=== PATIENT | female | born 1990 | race Caucasian/White ===

== ENCOUNTER 2018-08-24 14:16 | Emergency (ER) | payer OTHER ==
--- NOTE | 2018-08-24 15:03 | ED Physician Chart ---
ED Chief Complaint/HPI - Patient Information Date Seen:: 08/24/18 Time Seen:: 14:50 Chief Complaint:: back pain, chills and bloating History of Present Illness:: Patient had bacterial vaginosis diagnosed 3 days ago at [place]. She was prescribed Flagyl 500 mg of which she has taken four and Diflucan 150 mg and has taken 1. Patient had tongue tingling and lip swelling yesterday. Today she has back pain, chills and bloating. No throat swelling or difficulty breathing. 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 Musculoskeletal: Back pain Endocrine: No polyuria Psychiatric: No prior psych history Hematopoietic: No bruising Allergic/Immuno: No urticaria Neurological: No syncope, No focal symptoms ED Past Medical History - Past Medical History Past Medical History: No significant medical hx Family History: Diabetes Melitus, HTN Social History: Non Smoker, Alcohol, Other (usual alcohol consumption) Surgical History: Appendectomy Psychiatricy History: None Medication: Reviewed Family Medical History - Family Member Father Ethnicity: Living Status: Still Living Hx Family Hypertension: Yes ED Physical Exam - Physical Examination General/Constitutional: Awake, Well-developed, well-nourished, Alert, No distress, GCS 15, Non-toxic appearing, Ambulatory Head: Atraumatic Eyes: Lids, conjuctiva normal, PERRL, EOMI Skin: Nl inspection, No rash, No skin lesions, No ecchymosis, Well hydrated, No lymphadenopathy ENMT: External ears, nose nl, Nasal exam nl, Lips, teeth, gums nl Neck: Nontender, Full ROM w/o pain, No JVD, No nuchal rigidity, No bruit, No mass, No stridor Respiratory: Nl effort/Exclusion, Clear to Auscultation, No Wheeze/Rhonchi/Rales Cardio Vascular: RRR, No murmur, gallop, rubs, NL S1 S2 GI: No tenderness/rebounding/guarding, No organomegaly, No hernia, Normal BS's, Nondistended, No mass/bruits, No McBurney tenderness : No CVA tenderness Extremities: No tenderness or effusion, Full ROM, normal strength in all extremities, No edema, Normal digits & nails Neuro/Psych: Alert/oriented, DTR's symmetric, Normal sensory exam, Normal motor strength, Judgement/insight normal, Mood normal, Normal gait, No focal deficits Misc: Normal back, No paraspinal tenderness ED Labs/Radiology/EKG Results - Lab Results Results: Laboratory Results Urine Source [place] 08/24/18 14:45 Urine Color YELLOW 08/24/18 14:45 Urine Clarity HAZY (CLEAR) 08/24/18 14:45 Urine pH 6.0 (4.6 - 8.0) 08/24/18 14:45 Ur Specific [place] 1.025 (1.005-1.030) 08/24/18 14:45 Urine Protein NEGATIVE mg/dL (NEGATIVE) 08/24/18 14:45 Urine Glucose (UA) NEGATIVE mg/dL (NEGATIVE) 08/24/18 14:45 Urine Ketones NEGATIVE mg/dL (NEGATIVE) 08/24/18 14:45 Urine Blood NEGATIVE (NEGATIVE) 08/24/18 14:45 Urine Nitrate NEGATIVE (NEGATIVE) 08/24/18 14:45 Urine Bilirubin NEGATIVE (NEGATIVE) 08/24/18 14:45 Urine Urobilinogen 0.2 E.U./dL (0.2 - 1.0) 08/24/18 14:45 Ur Leukocyte Esterase NEGATIVE (NEGATIVE) 08/24/18 14:45 Urine RBC NONE SEEN /hpf (0-5) 08/24/18 14:45 Urine WBC 2-5 /hpf (0-5) 08/24/18 14:45 Ur Epithelial Cells FEW /lpf (FEW) 08/24/18 14:45 Urine Bacteria MODERATE /hpf (NONE SEEN) H 08/24/18 14:45 Urine Test NEGATIVE 08/24/18 14:45 ED Assessment - Assessment General Assessment: Suggested to patient stopping the Flagyl and following up with [place]. There are no signs of urinary tract infection ED Septic Shock - . Is Septic Shock (SBP<90, OR Lactate>4 mmol\L) present?: No - <6hrs of presentation: Vital Signs: Vital Signs - 8 hr 08/24/18 14:37 HR 107 RR 18 BP 122/72 O2 Sat % 99 ED Reassessment (Disposition) - Reassessment Reassessment Condition:: Unchanged - Diagnosis Diagnosis:: Medication side effect - Aftercare/Follow up Instructions Aftercare/Follow-Up Instructions:: Refer to Discharge Instructions - Patient Disposition Discharge/Transfer:: Home Condition at Disposition:: Stable, Unchanged
[2018-08-24 15:11] LABS: URINE SOURCE MIDSTREAM
[2018-08-24 15:12] LABS: URINE BILIRUBIN NEGATIVE (NEGATIVE); URINE BLOOD NEGATIVE (NEGATIVE); URINE GLUCOSE (UA) NEGATIVE (NEGATIVE); URINE KETONE NEGATIVE (NEGATIVE); URINE LEUKOCYTE ESTERASE NEGATIVE (NEGATIVE); URINE NITRATE NEGATIVE (NEGATIVE); URINE PROTEIN NEGATIVE (NEGATIVE); URINE UROBILINOGEN 0.2 E.U./dL (0.2 - 1.0)
[2018-08-24 15:21] LABS: URINE CLARITY HAZY (CLEAR); URINE COLOR YELLOW; URINE MICROSCOPIC INDICATED? YES
[2018-08-24 15:22] LABS: URINE BACTERIA MODERATE /hpf (NONE SEEN); URINE EPITHELIAL CELLS FEW /lpf (FEW); URINE RBC NONE SEEN /hpf (0-5)
== END 2018-08-24 16:00 | disposition home or self-care (01) ==
LOC: ER 14:16
DX: R20.2 Paresthesia of skin (principal); R68.83 Chills (without fever); T37.3X5A Adverse effect of other antiprotozoal drugs, initial encounter; T37.8X5A Adverse effect of other specified systemic anti-infectives and antiparasitics, initial encounter; Z90.49 Acquired absence of other specified parts of digestive tract; Y92.89 Other specified places as the place of occurrence of the external cause
CPT/HCPCS: 81001-TC; 81025-TC; 87086-90; Z7502